=== PATIENT | female | born 1990 | race Caucasian/White ===

== ENCOUNTER → 2021-09-22 13:22 | Outpatient (CLI) | payer BC, SELFPAY ==
--- NOTE | ~2021-09-22 | XR_ITS ---
XR wrist RT 2V DATE: 09/22/2021 14:03 INDICATION: Right wrist pain TECHNIQUE: AP and lateral views COMPARISON: None FINDINGS: No fracture, dislocation, periosteal reaction or bone destruction, joint space narrowing, e rosive change or chondrocalcinosis. IMPRESSION: Negative Reviewed, dictated and finalized at location B. IMPRESSION: Negative
== END ==
PROVIDERS: PCP Nurse Practitioner; Visit Provider Nurse Practitioner
DX: G89.29 Other chronic pain (principal); M25.531 Pain in right wrist
CPT/HCPCS: 73100